=== PATIENT | female | born 1985 | race Hispanic/Latino ===

== ENCOUNTER 2019-04-07 17:19 | Emergency (ER) | payer BC ==
[2019-04-07 17:59] LABS: Urine Blood 2+ (NEG); Urine Glucose NEGATIVE (NEG); Urine Protein NEGATIVE (NEG); Urine Specific Gravity 1.015 (1.005-1.030); Urine pH 5.5 (5.0-7.0)
[2019-04-07] MEDS ORDERED: HYDROCODONE/CHLORPHEN 5 ML/OSYR ONE (18:47)
[2019-04-07] MEDS ORDERED: IPRATROPIUM BROM 0.5MG/2.5ML ONE (18:47)
[2019-04-07] MEDS ORDERED: ALBUTEROL 2.5 MG/3 ML NEB SOL ONE (18:47)
--- NOTE | 2019-04-07 19:11 | RAD REPORT ---
EXAM DESCRIPTION: RAD - Chest Pa And Lat (2 Views) - 04/07/2019 6:55 pm CLINICAL HISTORY: COUGH Chest pain. COMPARISON: No comparisons FINDINGS: The lungs are clear. The heart is normal in size. No displaced fractures. IMPRESSION: No acute or concerning finding suspected.
--- NOTE | 2019-04-07 19:13 | ER ---
Nurse's Notes [facility] Name: Neeraj Singh Age: 33 yrs Sex: Female : 1985 Arrival Date: 04/07/2019 Time: 17:21 Bed 12 Private MD: Venkatesh Duran Diagnosis: Acute bronchitis Presentation: 04/07 17:23 Presenting complaint: Patient states: chest congestion, productive cough x 2 weeks. sv Transition of care: patient was not received from another setting of care. Onset of symptoms was March 24, 2019. Initial Sepsis Screen: Does the patient meet any 2 criteria? No. Patient's initial sepsis screen is negative. Does the patient have a suspected source of infection? No. Patient's initial sepsis screen is negative. Care prior to arrival: None. 17:23 Method Of Arrival: Ambulatory sv 17:23 Acuity: BRYON 3 sv Triage Assessment: 17:23 General: Appears in no apparent distress. uncomfortable, well developed, Behavior is sv calm, cooperative, appropriate for age. Pain: Denies pain. Neuro: Level of Consciousness is awake, alert, obeys commands, Oriented to person, place, time, situation, Gait is steady. Respiratory: Reports cough that is productive, hacking, persistent Airway is patent Respiratory effort is even, unlabored, Respiratory pattern is regular, symmetrical. Derm: Skin is pink, warm \T\ dry. Historical: - Allergies: 17:24 No Known Allergies; sv - PMHx: 17:24 fatty liver; sv - PSHx: 17:24 Cholecystectomy; Tummy tuck; sv Screenin:42 Abuse screen: Denies threats or abuse. Denies injuries from another. Nutritional aj screening: No deficits noted. Tuberculosis screening: No symptoms or risk factors identified. Fall Risk None identified. Assessment: 18:42 General: Appears in no apparent distress. comfortable, Behavior is calm, cooperative, aj appropriate for age. Pain: Denies pain. Neuro: Level of Consciousness is awake, alert, obeys commands, Oriented to person, place, time, situation, Appropriate for age. Respiratory: Reports cough that is Airway is patent Respiratory effort is even, unlabored, Respiratory pattern is regular, symmetrical. Derm: Skin is intact, is healthy with good turgor, Skin is pink, warm \T\ dry. normal. 19:31 Reassessment: Patient appears in no apparent distress at this time. Patient and/or jb4 family updated on plan of care and expected duration. Pain level reassessed. Patient is alert, oriented x 3, equal unlabored respirations, skin warm/dry/pink. Pt left ED ambulatory with steady gate. verbalized understanding of discharge and follow up instructions. No IV access during this visit to ED. Vital Signs: 17:24 BP 127 / 81; Pulse 86; Resp 18; Temp 97.2; Pulse Ox 96% ; Weight 95.25 kg; Height 5 ft. sv (152.40 cm); Pain 0/10; 19:31 BP 119 / 83; Pulse 80; Resp 16; Pulse Ox 98% on R/A; jb4 17:24 Body Mass Index 41.01 (95.25 kg, 152.40 cm) sv ED Course: 17:21 Patient arrived in ED. mr 17:22 Venkatesh Duran MD is Private Physician. mr 17:23 Triage completed. sv 17:24 Arm band placed on. sv 18:25 Malcolm Owen PA is PHCP. cp 18:25 Zeeshan Freedman MD is Attending Physician. cp 18:40 Sumi Gr, JERMAINE is Primary Nurse. aj 18:42 Patient has correct armband on for positive identification. aj 18:54 Chest Pa And Lat (2 Views) XRAY In Process Unspecified. EDMS 19:31 No provider procedures requiring assistance completed. Patient did not have IV access jb4 during this emergency room visit. Administered Medications: 18:43 Drug: Albuterol 2.5 mg Route: Inhalation; aj 19:33 Follow up: Response: No adverse reaction jb4 18:43 Drug: AtroVENT Aerosol 0.5 mg Route: Inhalation; aj 19:33 Follow up: Response: No adverse reaction jb4 18:43 Drug: Tussionex Pennkinetic ER 5 ml Route: PO; aj 19:33 Follow up: Response: No adverse reaction jb4 Outcome: 19:13 Discharge ordered by . cp 19:31 Discharged to home ambulatory. jb4 19:31 Condition: stable 19:31 Discharge instructions given to patient, Instructed on discharge instructions, follow up and referral plans. medication usage, Demonstrated understanding of instructions, follow-up care, medications, Prescriptions given X 4. 19:34 Patient left the ED. jb4 Signatures: Dispatcher [employer] Brenda Amador, RN Sumi Ghotra, JERMAINE DEAN Abisai, Maegan mr Malcolm Owen PA PA cp Bryson, James, RN RN jb4
--- NOTE | 2019-04-07 19:13 | EDPHYS ---
Physician Documentation [facility] Name: Neeraj Singh Age: 33 yrs Sex: Female : 1985 Arrival Date: 04/07/2019 Time: 17:21 Bed 12 Private MD: Venkatesh Duran ED Physician Zeeshan Freedman HPI: 04/07 18:30 This 33 yrs old Female presents to ER via Ambulatory with complaints of Cough. cp 18:30 The patient or guardian reports cough, that is intermittent, with productive sputum. cp Onset: The symptoms/episode began/occurred 2 week(s) ago. 18:30 Severity of symptoms: in the emergency department the symptoms are unchanged, despite cp home interventions. Associated signs and symptoms: Pertinent negatives: chest pain, diarrhea, fever, vomiting. Historical: - Allergies: 17:24 No Known Allergies; sv - PMHx: 17:24 fatty liver; sv - PSHx: 17:24 Cholecystectomy; Tummy tuck; sv ROS: 18:35 Constitutional: Negative for body aches, chills, fever, poor PO intake. cp 18:35 Eyes: Negative for injury, pain, redness, and discharge. cp 18:35 ENT: Positive for rhinorrhea, sore throat, Negative for drainage from ear(s), ear pain, sinus pain. 18:35 Cardiovascular: Negative for chest pain, palpitations. 18:35 Respiratory: Positive for cough, "sounds productive", Negative for wheezing. 18:35 Abdomen/GI: Negative for abdominal pain, nausea, vomiting, and diarrhea. 18:35 Skin: Negative for rash. 18:35 Neuro: Negative for altered mental status, headache, weakness. 18:35 All other systems are negative. Exam: 18:42 Constitutional: The patient appears in no acute distress, alert, awake, cp non-diaphoretic, non-toxic, well developed, well nourished. 18:42 Head/Face: Normocephalic, atraumatic. cp 18:42 Eyes: Periorbital structures: appear normal, Conjunctiva: normal, no exudate, no injection, Sclera: no appreciated abnormality, Lids and lashes: appear normal, bilaterally. 18:42 ENT: External ear(s): are unremarkable, Ear canal(s): are normal, clear, TM's: bulging, is not appreciated, bilaterally, dullness, bilaterally, erythema, is not appreciated, bilaterally, Nose: is normal, Mouth: Lips: moist, Oral mucosa: pink and intact, moist, Posterior pharynx: Airway: no evidence of obstruction, patent, Tonsils: are normal in appearance. 18:42 Neck: ROM/movement: is normal, is supple, without pain, no range of motions limitations, no nuchal rigidity, Lymph nodes: no appreciated lymphadenopathy. 18:42 Chest/axilla: Inspection: normal, Palpation: is normal, no crepitus, no tenderness. 18:42 Cardiovascular: Rate: normal, Rhythm: regular. 18:42 Respiratory: the patient does not display signs of respiratory distress, Respirations: normal, no use of accessory muscles, no retractions, no splinting, no tachypnea, labored breathing, is not present, Breath sounds: are clear throughout, decreased breath sounds, are not appreciated, stridor, is not appreciated, wheezing: is not appreciated. 18:42 Abdomen/GI: Exam negative for discomfort, distension, guarding, Inspection: abdomen appears normal. Vital Signs: 17:24 BP 127 / 81; Pulse 86; Resp 18; Temp 97.2; Pulse Ox 96% ; Weight 95.25 kg; Height 5 ft. sv (152.40 cm); Pain 0/10; 19:31 BP 119 / 83; Pulse 80; Resp 16; Pulse Ox 98% on R/A; jb4 17:24 Body Mass Index 41.01 (95.25 kg, 152.40 cm) sv MDM: 18:25 Patient medically screened. cp 19:12 Data reviewed: vital signs, nurses notes, lab test result(s), radiologic studies, plain cp films. 19:12 Differential Diagnosis: Bronchitis Influenza Sinusitis Otitis Media Viral Syndrome cp Pneumonia. Test interpretation: by ED physician or midlevel provider: plain radiologic studies. Counseling: I had a detailed discussion with the patient and/or guardian regarding: the historical points, exam findings, and any diagnostic results supporting the discharge/admit diagnosis, lab results, radiology results, to return to the emergency department if symptoms worsen or persist or if there are any questions or concerns that arise at home. Response to treatment: the patient's symptoms have markedly improved after treatment. ED course: chest xray negative for acute infiltrates. 04/07 17:37 Order name: Urine Dipstick--Ancillary (enter results); Complete Time: 18:29 bb 04/07 17:37 Order name: Urine --Ancillary (enter results); Complete Time: 18:29 bb 04/07 17:24 Order name: Chest Pa And Lat (2 Views) XRAY; Complete Time: 19:16 sv 04/07 18:29 Order name: Strep; Complete Time: 19:16 cp 04/07 18:29 Order name: Influenza Screen (a \\T\\ B); Complete Time: 19:16 cp 04/07 19:04 Order name: Throat Culture EDMS Administered Medications: 18:43 Drug: Albuterol 2.5 mg Route: Inhalation; 19:33 Follow up: Response: No adverse reaction [facility] 18:43 Drug: AtroVENT Aerosol 0.5 mg Route: Inhalation; 19:33 Follow up: Response: No adverse reaction [facility] 18:43 Drug: Tussionex Pennkinetic ER 5 ml Route: PO; 19:33 Follow up: Response: No adverse reaction [facility] Disposition: 04/07/19 19:13 Discharged to Home. Impression: Acute bronchitis. - Condition is Stable. - Discharge Instructions: Acute Bronchitis, Adult. - Prescriptions for Tessalon Perles 100 mg Oral Capsule - take 2 capsule by ORAL route every 8 hours As needed; 30 capsule. Prednisone 20 mg Oral Tablet - take 2 tablet by ORAL route once daily for 5 days; 10 tablet. Albuterol Sulfate 90 mcg/actuation - inhale 1-2 puff by INHALATION route every 4-6 hours; 1 Inhaler. Albuterol Sulfate 2.5 mg /3 mL (0.083 %) Inhalation Solution for Nebulization - inhale 1 unit by NEBULIZATION route every 8 hours As needed; 1 box. - Medication Reconciliation Form, Thank You Letter, Antibiotic Education, Prescription Opioid Use form. - Follow up: Private Physician; When: 2 - 3 days; Reason: Worsening of condition. - Problem is new. - Symptoms have improved. Addendum: 04/09/2019 07:00 Co-signature as Attending Physician, Zeeshan Freedman MD. r n Signatures: Dispatcher [employer] EDTX Brenda Orta RN RN sv Myers, Amanda, RN RN aj Nieto, Roman, MD MD rn Page, Corey, PA PA cp [place], Marc, RN RN jb4 Corrections: (The following items were deleted from the chart) 04/07 19:34 19:13 04/07/2019 19:13 Discharged to Home. Impression: Acute bronchitis. Condition is jb4 Stable. Forms are Medication Reconciliation Form, Thank You Letter, Antibiotic Education, Prescription Opioid Use. Follow up: Private Physician; When: 2 - 3 days; Reason: Worsening of condition. Problem is new. Symptoms have improved. cp
[2019-04-07 23:12] VITALS: TEMP 97.2
[2019-04-07 23:14] VITALS: BP 119/83; O2SAT 98
== END 2019-04-07 19:34 | disposition home or self-care (01) ==
LOC: ER 17:19
DX: J20.9 Acute bronchitis, unspecified (principal)
CPT/HCPCS: 71046; 81003; 81025; 87070; 87081; 87804; 99284

== ENCOUNTER 2019-06-08 12:53 | Emergency (ER) | payer BC ==
[2019-06-08] MEDS ORDERED: NEOMY/POLY/HC 1% OTIC DROPS ONE (13:45)
--- NOTE | 2019-06-08 13:47 | EDPHYS ---
Physician Documentation [facility] Name: Neeraj Singh Age: 33 yrs Sex: Female : 1985 Arrival Date: 06/08/2019 Time: 12:55 Bed 11 Private MD: Venkatesh Duran ED Physician Zeeshan Freedman HPI: 06/08 13:41 This 33 yrs old Female presents to ER via Ambulatory with complaints of Ear jmm Pain. 13:41 The patient presents with pain. Onset: The symptoms/episode began/occurred gradually, 1 jmm day(s) ago. Modifying factors: The symptoms are alleviated by nothing. This is a 33 year old female that presents to the ED with complaints of right ear pain beginning yesterday. Seen by urgent care and advised to go to the ED because they could not visualize the TM. . 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 - Social history:: Smoking status: Patient/guardian denies using tobacco. - Ebola Screening: : No symptoms or risks identified at this time. ROS: 13:41 Constitutional: Negative for fever, chills, and weight loss. jmm 13:41 Cardiovascular: Negative for chest pain, palpitations, and edema. 13:41 Abdomen/GI: Negative for abdominal pain, nausea, vomiting, diarrhea, and constipation, MS/Extremity: Negative for injury and deformity, Neuro: Negative for headache, weakness, numbness, tingling, and seizure. 13:41 ENT: Positive for ear pain. 13:41 Respiratory: Positive for cough. 13:41 All other systems are negative. Exam: 13:41 Constitutional: This is a well developed, well nourished patient who is awake, alert, jmm and in no acute distress. Head/Face: atraumatic. 13:41 Neck: Trachea midline, Supple Chest/axilla: Normal chest wall appearance and motion. Cardiovascular: Regular rate and rhythm. No edema appreciated Respiratory: Normal respirations, no respiratory distress appreciated Abdomen/GI: Non distended, soft Back: Normal ROM Skin: General appearance color normal MS/ Extremity: Moves all extremities, no obvious deformities appreciated, no edema noted to the lower extremities Neuro: Awake and alert, normal gait 13:41 ENT: Ear canal(s): purulent discharge, in the right canal, swelling, of the right canal, TM's: are normal. Vital Signs: 13:01 BP 120 / 86; Pulse 82; Resp 16 S; Temp 100.7(O); Pulse Ox 100% on R/A; Weight 90.72 kg aa5 (R); Height 5 ft. 0 in. (152.40 cm) (R); Pain 10/10; 13:01 Body Mass Index 39.06 (90.72 kg, 152.40 cm) aa5 MDM: 13:28 Patient medically screened. [facility] 13:41 Data reviewed: vital signs, nurses notes. Counseling: I had a detailed discussion with pelon the patient and/or guardian regarding: the historical points, exam findings, and any diagnostic results supporting the discharge/admit diagnosis, the need for outpatient follow up, to return to the emergency department if symptoms worsen or persist or if there are any questions or concerns that arise at home. ED course: Patient is alert and non toxic in appearance. PE findings concerning for OE. Patient states recently swimming. Able to visualized normal TM. Ear wick inserted. Patient advised to follow up with pcp or ent and otherwise given strict return precautions if symptoms worsen. patient understood and agrees with the plan of care. . Administered Medications: No medications were administered Disposition: 14:45 Co-signature as Attending Physician, Zeeshan Freedman MD. rn Disposition: 06/08/19 13:46 Discharged to Home. Impression: Acute actinic otitis externa. - Condition is Stable. - Discharge Instructions: Otitis Externa. - Prescriptions for Ciprodex 0.3- 0.1 % Otic Drops, Suspension - instill 4 drop by OTIC route every 12 hours for 7 days , for ears ONLY; 1 Container. - Medication Reconciliation Form, Thank You Letter, Antibiotic Education, Prescription Opioid Use form. - Follow up: Venkatesh Duran MD; When: 2 - 3 days; Reason: Recheck today's complaints, Continuance of care, Re-evaluation by your physician. Signatures: Rainer Castellon PA PA jmm Nieto, Roman, MD MD rn Vivian Martines, RN RN aa5 Corrections: (The following items were deleted from the chart) 13:57 13:46 06/08/2019 13:46 Discharged to Home. Impression: Acute actinic otitis externa. aa5 Condition is Stable. Forms are Medication Reconciliation Form, Thank You Letter, Antibiotic Education, Prescription Opioid Use. Follow up: Venkatesh Duran; When: 2 - 3 days; Reason: Recheck today's complaints, Continuance of care, Re-evaluation by your physician. kalina
--- NOTE | 2019-06-08 13:47 | ER ---
Nurse's Notes [facility] Name: Neeraj Singh Age: 33 yrs Sex: Female : 1985 Arrival Date: 06/08/2019 Time: 12:55 Bed 11 Private MD: Venkatesh Duran Diagnosis: Acute actinic otitis externa Presentation: 06/08 13:00 Presenting complaint: Patient states: right ear pain that began yesterday. Pt denies aa5 any other symptoms. 13:00 Transition of care: patient was not received from another setting of care. Onset of aa5 symptoms was May 2019. Risk Assessment: Do you want to hurt yourself or someone else? Patient reports no desire to harm self or others. Initial Sepsis Screen: Does the patient meet any 2 criteria? No. Patient's initial sepsis screen is negative. Does the patient have a suspected source of infection? No. Patient's initial sepsis screen is negative. Care prior to arrival: None. 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 - Social history:: Smoking status: Patient/guardian denies using tobacco. - Ebola Screening: : No symptoms or risks identified at this time. Screenin:07 Abuse screen: Denies threats or abuse. Nutritional screening: No deficits noted. aa5 Tuberculosis screening: No symptoms or risk factors identified. Fall Risk None identified. Assessment: 13:04 General: Appears uncomfortable, Behavior is calm, cooperative. Pain: Complains of pain aa5 in right ear Pain does not radiate. Pain currently is 10 out of 10 on a pain scale. Quality of pain is described as aching, throbbing, Pain began 1 day ago. Is continuous. Neuro: Level of Consciousness is awake, alert, obeys commands, Oriented to person, place, time, situation. Cardiovascular: Patient's skin is warm and dry. Respiratory: Airway is patent Respiratory effort is even, unlabored, Respiratory pattern is regular, symmetrical. GI: No signs and/or symptoms were reported involving the gastrointestinal system. : No signs and/or symptoms were reported regarding the genitourinary system. EENT: Reports pain in right ear. Derm: Skin is pink, warm \T\ dry. Musculoskeletal: Range of motion: intact in all extremities. 13:54 Reassessment: Patient is alert, oriented x 3, equal unlabored respirations, skin aa5 warm/dry/pink. Vital Signs: 13:01 BP 120 / 86; Pulse 82; Resp 16 S; Temp 100.7(O); Pulse Ox 100% on R/A; Weight 90.72 kg aa5 (R); Height 5 ft. 0 in. (152.40 cm) (R); Pain 10/10; 13:01 Body Mass Index 39.06 (90.72 kg, 152.40 cm) aa5 ED Course: 12:55 Patient arrived in ED. as 12:55 Venkatesh Duran MD is Private Physician. as 13:04 Vivian Martines, RN is Primary Nurse. aa5 13:04 Arm band placed on Patient placed in an exam room. aa5 13:04 Patient has correct armband on for positive identification. Call light in reach. aa5 13:05 Triage completed. aa5 13:08 No provider procedures requiring assistance completed. aa5 13:18 [facility] 13:18 eZeshan Freedman MD is Attending Physician. [facility] 13:44 Venkatesh Duran MD is Referral Physician. [facility] 13:54 Patient did not have IV access during this emergency room visit. aa5 Administered Medications: No medications were administered Outcome: 13:46 Discharge ordered by . [facility] 13:54 Discharged to home ambulatory. aa5 13:54 Condition: stable 13:54 Discharge instructions given to patient, Instructed on discharge instructions, follow up and referral plans. medication usage, Demonstrated understanding of instructions, follow-up care, medications, Ear wick was placed by PA prior to d/c home. 13:57 Patient left the ED. aa5 Signatures: Rainer Castellon PA PA jmm Martinez, Amelia as Vivian Martines, RN RN aa5
[2019-06-08 14:25] VITALS: BP 120/86; TEMP 100.7; O2SAT 100
== END 2019-06-08 13:57 | disposition home or self-care (01) ==
LOC: ER 12:53
DX: H60.511 Acute actinic otitis externa, right ear (principal)
CPT/HCPCS: 99281

== ENCOUNTER 2022-01-26 10:01 | Emergency (ER) | payer BC ==
--- OUTSIDE RECORDS SUMMARY | 2022-01-26 10:05 | XMS REPORT | Continuity of Care Document ---
:1985 Author Organization [facility] t Address [address] [place] [address] Care Team Providers Name Role Phone Lab, Fam Pob I Attending Clinician Unavailable Irais SURGERY TEACHER Attending Clinician IRAIS Attending Clinician Unavailable FRANCISCA Attending Clinician Unavailable Francisca SURGERY TEACHER Attending Clinician Payers Payer Name Policy Type Policy Number Effective Date Expiration Date S ource Problems This patient has no known problems. Allergies, Adverse Reactions, Alerts Allergy Allergy Status Severity Reaction(s) Onset Inactive Treating Comm ents Source Name Type Date Date Clinician NO KNOWN Drug Active [facility] Social History Social Habit Start Date Stop Date Quantity Comments Source Sex Assigned At Uni versity [facility] Smoking Status Start Date Stop Date Source Unknown if ever smoked [facility] Medications This patient has no known medications. Procedures This patient has no known procedures. Encounters Start End Encounter Admission Attending Care Care Encounter Source Date/Time Date/Time Type Type Clinicians Facility Department ID 2020-11-28 2020-11-28 Laboratory Lab, [facility] Fam Pob I [facility] 1.2. [id number] Univers 11:49:55 12:09:55 Only [facility] [id number] [facility] [id number] Ricardo as Gerald [phone] Ca dical [address] Office [address] 2020-11-28 2020-11-28 Outpatient R [facility] [id number] Univers 12:00:00 [facility]00[id number] 2020-11-28 2020-11-28 Outpatient R [facility] [id number] Univers 12:00:00 12:00:00 [facility] 2020-06-10 2020-06-10 Outpatient R FRANCISCA [facility] [id number] Univers 08:40:00 08:40:00 DAISHA [facility] 2020-06-10 2020-06-10 Laboratory Lab, Adc Fam Pob I [facility] 1.2. [id number] Univers 08:10:22 08:30:22 Only Daisha Sheikh [id number] [id number] Ricardo as Professio [id number] Ca dical [address] 2020-06-09 2020-06-09 Outpatient R [facility] [id number] Univers 10:15:00 10:15:00 [facility] Results This patient has no known results.
[2022-01-26 10:49] LABS: Urine Blood 1+ (Negative); Urine Glucose Negative (Negative); Urine Protein Negative (Negative); Urine pH 6.5 (5.0-7.0)
[2022-01-26] MEDS ORDERED: MORPHINE 4 MG/ML SYR ONE ×2 (11:09→12:22)
[2022-01-26] MEDS ORDERED: ONDANSETRON 4 MG/2 ML VIAL ONE (11:10)
[2022-01-26] MEDS ORDERED: NA CHLORIDE 0.9% 1,000 ML ONE (11:16)
[2022-01-26 12:26] LABS: Absolute Lymphocytes (CBC) 1.5 K/uL (0.7-4.9); Lymphocytes % 12.2 % (15.3-44.8); MPV 8.7 fL (7.6-11.3); RBC Red Blood Cell Count 4.64 M/uL (3.86-4.86)
[2022-01-26 12:44] LABS: Albumin 3.5 g/dL (3.4-5.0); Bilirubin Direct 0.2 mg/dL (0-0.2); Bilirubin Total 0.9 mg/dL (0.2-1.0); Potassium 3.9 mmol/L (3.5-5.1); Protein, Total 7.7 g/dL (6.4-8.2)
--- NOTE | 2022-01-26 13:19 | RAD REPORT ---
EXAM DESCRIPTION: CT - Abdomen Pelvis W Contrast - 01/26/2022 1:00 pm CLINICAL HISTORY: FLANK PAINleft-side COMPARISON: Abdomen Exam Complete dated 02/28/2019 TECHNIQUE: Biphasic, helical CT imaging of the abdomen and pelvis was performed following 100 ml non -ionic IV contrast. All CT scans are performed using dose optimization technique as appropriate and may include automated exposure control or mA/KV adjustment according to patient size. FINDINGS: No suspicious findings in the lung bases. Liver shows a very diffuse fatty infiltration pattern with a 13 mm area of rounded focal enhancement in the anterolateral subcapsular right lobe segment VIII. This could be an area of spared parenchyma. A small hemangioma is possible. This is not regarded as a significant finding. No portal vein abnorm ality. Spleen and pancreas show no suspicious findings. Cholecystectomy clips are present. No biliary tree d ilatation. Patient has numerous 3-10 mm sized bilateral calyx calculi. Moderate severity left-sided hydronephros is present secondary to a 12 x 9 mm stone in the mid left ureter. This causes significant delay in fu nction of the left kidney relative to the right. Right renal function has a normal appearance with no right-sided hydronephrosis or obstructing right-sided calculus. No pyelonephritis or acute parenchym al process. No bladder abnormalities. No adrenal abnormalities. Uterus and ovaries show no suspicious findings. No dilated bowel loops or bowel wall thickening. Appendix is normal. No free air, free fluid or infla mmatory stranding. A 4 centimeter fat only periumbilical hernia is present with a 1.5 centimeter nec k. No congested or edematous changes of the herniated fat. No bowel involvement. No other hernia defe cts seen. No mass or bulky lymphadenopathy. No suspicious bony findings. IMPRESSION: Moderate severity left-sided hydronephrosis down to the mid ureter level where there is a 12 x 9 mm obstructing calculus. Patient has numerous bilateral nonobstructing calyx calculi. Diffuse fatty infiltration of the liver. A 13 millimeter rounded focus of enhancement in the lateral right lobe may be spared parenchyma or small hemangioma. This is not regarded as significant.
[2022-01-26] MEDS ORDERED: KETOROLAC 30 MG/ML INJ ONE (15:25)
[2022-01-26] MEDS ORDERED: HYDROMORPHONE HCL 1 MG/ML INJ ONE (17:06)
[2022-01-26] MEDS ORDERED: TAMSULOSIN 0.4 MG SR CAP ONE (17:22)
--- NOTE | 2022-01-26 17:32 | ER ---
Nurse's Notes [facility] Name: Neeraj Singh Age: 36 yrs Sex: Female : 1985 Arrival Date: 01/26/2022 Time: 10:05 Bed 12 Private MD: Venkatesh Duran Diagnosis: Calculus of ureter Presentation: 01/26 10:10 Chief complaint: Patient states: LUQ/L flank pain since Sunday, got worse today. + N/V ll1 when the pain is severe. No fever or dysuria. 10:17 Coronavirus screen: Vaccine status: Patient reports receiving the 1st dose of the Covid ll1 vaccine. Client denies travel out of the [place] in the last 14 days. At this time, the client does not indicate any symptoms associated with coronavirus-19. Ebola Screen: Patient denies travel to an Ebola-affected area in the 21 days before illness onset. Initial Sepsis Screen: Does the patient meet any 2 criteria? HR > 90 bpm. No. Patient's initial sepsis screen is negative. Does the patient have a suspected source of infection? Yes: Acute abdominal pain. Risk Assessment: Do you want to hurt yourself or someone else? Patient reports no desire to harm self or others. Onset of symptoms was January 20, 2022. 10:17 Method Of Arrival: Ambulatory ll1 10:17 Acuity: BRYON 3 ll1 Triage Assessment: 10:10 General: Appears uncomfortable, Behavior is calm, cooperative, appropriate for age. ll1 Pain: Complains of pain in L flank Quality of pain is described as aching, Pain began 6 days ago. Neuro: No deficits noted. Cardiovascular: No deficits noted. Respiratory: No deficits noted. GI: Reports upper abdominal pain, nausea, vomiting. : No deficits noted. Musculoskeletal: Circulation, motion, and sensation intact. Capillary refill < 3 seconds, Reports pain in L flank. 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 - Social history:: Smoking status: Patient denies any tobacco usage or history of. Screenin:41 Abuse screen: Denies threats or abuse. Denies injuries from another. Nutritional jg9 screening: No deficits noted. Tuberculosis screening: No symptoms or risk factors identified. Fall Risk None identified. Assessment: 11:00 Reassessment: No changes from previously documented assessment. pain is 8/10. jg9 11:22 Reassessment: Patient states symptoms have improved. jg9 12:21 Reassessment: Patient reports that her pain level is beginning to rise again-Mid level jg9 notified. 16:15 Reassessment: Patient states feeling better. Patient reports relief after receiving jg9 Toradol 30 mg IV. Neuro: No deficits noted. Level of Consciousness is awake, alert, obeys commands, Oriented to person, place, time, situation. 17:22 Reassessment: Patient states feeling better. Patient states symptoms have improved. jg9 Neuro: Level of Consciousness is awake, alert, obeys commands, Oriented to person, place, time, situation. Vital Signs: 10:17 BP 120 / 55; Pulse 93; Resp 18; Temp 98.8; Pulse Ox 98% ; Weight 104.33 kg; Height 5 ll1 ft. 0 in. (152.40 cm); Pain 8/10; 11:00 BP 121 / 67; Pulse 84; Resp 14 S; Pulse Ox 96% ; Pain 8/10; jg9 11:22 Pain 1/10; jg9 11:30 BP 114 / 66; Pulse 66; Resp 12 S; Pulse Ox 99% on R/A; jg9 12:30 BP 134 / 71; Pulse 93; Resp 12 S; Pulse Ox 98% on R/A; Pain 4/10; jg9 13:30 BP 136 / 74; Pulse 94; Resp 18 S; Pulse Ox 98% on R/A; jg9 14:00 BP 118 / 78; Pulse 82; Resp 17; Pulse Ox 96% on R/A; Pain 8/10; jg9 15:00 BP 116 / 68; Pulse 101; Resp 16 S; Pulse Ox 97% ; jg9 16:15 BP 120 / 63; Pulse 104; Resp 12 S; Pulse Ox 93% on R/A; Pain 6/10; jg9 17:28 BP 128 / 69; Pulse 95; Resp 10 S; Pulse Ox 95% on R/A; jg9 10:17 Body Mass Index 44.92 (104.33 kg, 152.40 cm) 1 ED Course: 10:05 Patient arrived in ED. mr 10:05 Venkatesh Duran MD is Private Physician. mr 10:12 Arm band placed on Patient placed in an exam room, on a stretcher. ll1 10:13 [facility]. m 10:13 Malcolm Jones MD is Attending Physician. m 10:19 Triage completed. ll1 10:41 Inserted saline lock: 20 gauge in right antecubital area, using aseptic technique. jg9 Blood collected. 10:58 Suyapa Walters, JERMAINE is Primary Nurse. jg9 13:00 CT Abd/Pelvis - IV Contrast Only In Process Unspecified. EDMS 16:16 No apparent distress. Resting quietly. jg9 17:22 No apparent distress. Resting quietly. jg9 17:23 Patient has correct armband on for positive identification. Bed in low position. Call jg9 light in reach. Door closed. Noise minimized. Lights dimmed. 17:32 David Ferguson MD is Referral Physician. m 18:27 No provider procedures requiring assistance completed. jg9 18:27 IV discontinued. jg9 Administered Medications: 11:10 Drug: Zofran (Ondansetron) 4 mg Route: IVP; Site: right antecubital; jg9 11:22 Follow up: Response: No adverse reaction jg9 11:12 Drug: morphine 4 mg {Note: RASS-0.} Route: IVP; Site: right antecubital; jg9 11:23 Follow up: Response: No adverse reaction; Marked relief of symptoms; Pain is decreased jg9 11:18 Drug: NS 0.9% 1000 ml Route: IV; Rate: 1 bolus; Site: right antecubital; jg9 17:17 Follow up: IV Status: Completed infusion; IV Intake: 1000ml jg9 12:21 Drug: morphine 4 mg Route: IVP; Site: right antecubital; jg9 13:33 Follow up: Response: Pain is decreased jg9 15:23 Drug: Ketorolac 30 mg Route: IVP; Site: right antecubital; jg9 16:15 Follow up: Response: No adverse reaction; Marked relief of symptoms; Pain is decreased jg9 17:16 Drug: Dilaudid (HYDROmorphone) 1 mg Route: IVP; Infused Over: 2 mins; Site: right jg9 antecubital; 17:21 Follow up: Response: No adverse reaction; Marked relief of symptoms; Pain is decreased; jg9 RASS: Drowsy (-1) 17:22 Drug: Flomax (tamsulosin) 0.4 mg Route: PO; jg9 18:28 Follow up: Response: No adverse reaction jg9 Intake: 17:17 IV: 1000ml; Total: 1000ml. jg9 Outcome: 17:32 Discharge ordered by . pelon 18:27 Discharged to home via wheelchair. jg9 18:27 Condition: stable 18:27 Discharge instructions given to patient, Instructed on discharge instructions, follow up and referral plans. Demonstrated understanding of instructions, follow-up care, medications, Prescriptions given X 3. 18:28 Patient left the ED. ss Signatures: Dispatcher [employer] EDMS Rainer Castellon PA PA jmm Rivera, Mary mr Smirch, Shelby, RN JERMAINE ss Rohan Ward RN RN ll1 Suyapa Walters RN RN jg9
--- NOTE | 2022-01-26 17:32 | EDPHYS ---
Physician Documentation [facility] Name: Neeraj Singh Age: 36 yrs Sex: Female : 1985 Arrival Date: 01/26/2022 Time: 10:05 Bed 12 Private MD: Venkatesh Duran ED Physician Malcolm Jones HPI: 01/26 10:16 This 36 yrs old Female presents to ER via Ambulatory with complaints of Flank jmm Pain, Back Pain. 10:16 The patient complains of pain in the left flank. The pain radiates to the abdomen. jmm Onset: The symptoms/episode began/occurred gradually, 2 day(s) ago. Modifying factors: The symptoms are alleviated by nothing. the symptoms are aggravated by nothing. Associated signs and symptoms: Pertinent negatives: dysuria, fever. The patient has not experienced similar symptoms in the past. 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 - Social history:: Smoking status: Patient denies any tobacco usage or history of. ROS: 10:16 Constitutional: Negative for fever, chills, and weight loss, Cardiovascular: Negative jmm for chest pain, palpitations, and edema, Respiratory: Negative for shortness of breath, cough, wheezing, and pleuritic chest pain, Abdomen/GI: Negative for abdominal pain, nausea, vomiting, diarrhea, and constipation. 10:16 Back: Positive for flank pain. 10:16 All other systems are negative. Exam: 10:16 Constitutional: This is a well developed, well nourished patient who is awake, alert, jmm and in no acute distress. Head/Face: atraumatic. Eyes: EOMI, no conjunctival erythema appreciated ENT: Moist Mucus Membranes Neck: Trachea midline, Supple Chest/axilla: Normal chest wall appearance and motion. Cardiovascular: Regular rate and rhythm. No edema appreciated Respiratory: Normal respirations, no respiratory distress appreciated Abdomen/GI: Non distended, soft 10:16 Skin: General appearance color normal MS/ Extremity: Moves all extremities, no obvious deformities appreciated, no edema noted to the lower extremities Neuro: Awake and alert Psych: Behavior is normal, Mood is normal, Patient is cooperative and pleasant 10:16 Back: CVA tenderness, that is moderate, is noted on the left. Vital Signs: 10:17 BP 120 / 55; Pulse 93; Resp 18; Temp 98.8; Pulse Ox 98% ; Weight 104.33 kg; Height 5 ll1 ft. 0 in. (152.40 cm); Pain 8/10; 11:00 BP 121 / 67; Pulse 84; Resp 14 S; Pulse Ox 96% ; Pain 8/10; jg9 11:22 Pain 1/10; jg9 11:30 BP 114 / 66; Pulse 66; Resp 12 S; Pulse Ox 99% on R/A; jg9 12:30 BP 134 / 71; Pulse 93; Resp 12 S; Pulse Ox 98% on R/A; Pain 4/10; jg9 13:30 BP 136 / 74; Pulse 94; Resp 18 S; Pulse Ox 98% on R/A; jg9 14:00 BP 118 / 78; Pulse 82; Resp 17; Pulse Ox 96% on R/A; Pain 8/10; jg9 15:00 BP 116 / 68; Pulse 101; Resp 16 S; Pulse Ox 97% ; jg9 16:15 BP 120 / 63; Pulse 104; Resp 12 S; Pulse Ox 93% on R/A; Pain 6/10; jg9 17:28 BP 128 / 69; Pulse 95; Resp 10 S; Pulse Ox 95% on R/A; jg9 10:17 Body Mass Index 44.92 (104.33 kg, 152.40 cm) ll1 MDM: 10:17 Patient medically screened. [facility] 17:02 Data reviewed: vital signs, nurses notes. [facility] 17:29 Counseling: I had a detailed discussion with the patient and/or guardian regarding: the [facility] historical points, exam findings, and any diagnostic results supporting the discharge/admit diagnosis, lab results, radiology results, the need for outpatient follow up, the need to transfer to another facility, to return to the emergency department if symptoms worsen or persist or if there are any questions or concerns that arise at home. ED course: I discussed the patient with Dr. Ferguson whom will follow up with the patient in clinic tomorrow. I discussed this with the patient whom prefers outpatient follow up with Dr. Marty galicia. . 01/26 10:16 Order name: Basic Metabolic Panel; Complete Time: 13:08 [facility] 01/26 10:16 Order name: CBC with Diff; Complete Time: 13:08 [facility] 01/26 10:16 Order name: Hepatic Function; Complete Time: 13:08 [facility] 01/26 10:16 Order name: Lipase; Complete Time: 13:08 [facility] 01/26 10:49 Order name: Urine Dipstick-Ancillary; Complete Time: 10:50 [facility] 01/26 10:55 Order name: Urine --Ancillary (enter results); Complete Time: 11:05 01/26 11:06 Order name: CT Abd/Pelvis - IV Contrast Only; Complete Time: 13:40 [facility] 01/26 10:16 Order name: IV Saline Lock; Complete Time: 10:42 [facility] 01/26 10:16 Order name: Labs collected and sent; Complete Time: 10:42 [facility] 01/26 10:16 Order name: Urine Dipstick-Ancillary (obtain specimen); Complete Time: 10:58 [facility] 01/26 12:16 Order name: Labs - recollect needed; Complete Time: 12:21 ss Administered Medications: 11:10 Drug: Zofran (Ondansetron) 4 mg Route: IVP; Site: right antecubital; jg9 11:22 Follow up: Response: No adverse reaction jg9 11:12 Drug: morphine 4 mg {Note: RASS-0.} Route: IVP; Site: right antecubital; jg9 11:23 Follow up: Response: No adverse reaction; Marked relief of symptoms; Pain is decreased jg9 11:18 Drug: NS 0.9% 1000 ml Route: IV; Rate: 1 bolus; Site: right antecubital; jg9 17:17 Follow up: IV Status: Completed infusion; IV Intake: 1000ml jg9 12:21 Drug: morphine 4 mg Route: IVP; Site: right antecubital; jg9 13:33 Follow up: Response: Pain is decreased jg9 15:23 Drug: Ketorolac 30 mg Route: IVP; Site: right antecubital; jg9 16:15 Follow up: Response: No adverse reaction; Marked relief of symptoms; Pain is decreased jg9 17:16 Drug: Dilaudid (HYDROmorphone) 1 mg Route: IVP; Infused Over: 2 mins; Site: right jg9 antecubital; 17:21 Follow up: Response: No adverse reaction; Marked relief of symptoms; Pain is decreased; jg9 RASS: Drowsy (-1) 17:22 Drug: Flomax (tamsulosin) 0.4 mg Route: PO; jg9 18:28 Follow up: Response: No adverse reaction jg9 Disposition Summary: 01/26/22 17:32 Discharge Ordered Location: Home [facility] Condition: Stable [facility] Diagnosis - Calculus of ureter [facility] Followup: [facility] - With: David Ferguson MD - When: Tomorrow - Reason: Recheck today's complaints, Continuance of care, Re-evaluation by your physician Discharge Instructions: - Discharge Summary Sheet [facility] - Kidney Stones [facility] Forms: - Medication Reconciliation Form [facility] - Thank You Letter [facility] - Antibiotic Education [facility] - Prescription Opioid Use [facility] Prescriptions: - Tylenol-Codeine #3 300 mg-30 mg Oral - take 1 tablet by ORAL route every 4-6 hours; 30 tablet; Refills: 0, Product [facility] Selection Permitted - tamsulosin 0.4 mg Oral capsule - take 1 capsule by ORAL route once daily 1/2 hour following the same meal each [facility] day; 30 capsule; Refills: 0, Product Selection Permitted - ondansetron 4 mg Oral tablet,disintegrating - take 1 tablet by ORAL route every 4-6 hours; 30 tablet; Refills: 0, Product [facility] Selection Permitted Signatures: Dispatcher [employer] Malcolm Connors MD MD cha Mickail, Joel, PA PA [facility] Araceli Tejeda RN RN ss Rohan Ward RN RN ll1 Suyapa Walters RN RN jg9
[2022-01-26 20:12] VITALS: TEMP 98.8
[2022-01-26 20:23] VITALS: BP 128/69; O2SAT 95
== END 2022-01-26 18:28 | disposition home or self-care (01) ==
LOC: ER 10:01
DX: N20.1 Calculus of ureter (principal)
CPT/HCPCS: 96361; 85025; 80048; 36415; 81025; 80076; 81003; 83690; 74177; 96375; 96374; 99284; Q9967; J1170; J7030; J2405

== ENCOUNTER 2022-01-27 13:45 | Inpatient (IN) | payer BC ==
[2022-01-27] MEDS ORDERED: ONDANSETRON 4 MG/2 ML VIAL ONE (14:06)
[2022-01-27] MEDS ORDERED: Ringers Lactate 1,000 ML IV ONE (14:11)
[2022-01-27] MEDS ORDERED: CEFAZOLIN/SWI 2gm 2 GM/20 ML SYR IV SCH (14:15)
[2022-01-27] MEDS ORDERED: PROMETHAZINE INJ 25 MG/ML AMP ONE (17:05)
[2022-01-27] MEDS ORDERED: propofoL 200 MG/20 ML VIAL IV ONE (18:18)
[2022-01-27] MEDS ORDERED: FENTANYL CITR 100 MCG/2 ML ONE (18:18)
[2022-01-27] MEDS ORDERED: MIDAZOLAM HCL 2 MG/2 ML INJ ONE (18:18)
[2022-01-27] MEDS ORDERED: ONDANSETRON 4 MG/2 ML VIAL IV PRN (18:49)
[2022-01-27] MEDS: NA CHLORIDE 0.9% 1,000 ML IV SCH ×2 (19:00→20:12)
[2022-01-27] MEDS ORDERED: CEFTRIAXONE 1,000 MG in NA CHLORIDE 0.9% 50 ML IVPB ONE (19:00)
--- OUTSIDE RECORDS SUMMARY | 2022-01-27 19:05 | XMS REPORT | Continuity of Care Document ---
:1985 Author Organization [facility] t Address [address] [place] [address] Care Team Providers Name Role Phone Roger Attending Clinician Unavailable Lab, Fam Pob I Attending Clinician Unavailable Irais AIRPLANE CABIN ATTENDANT Attending Clinician IRAIS Attending Clinician Unavailable FRANCISCA Attending Clinician Unavailable Francisca GALVEZ Attending Clinician Payers Payer Name Policy Type Policy Number Effective Date Expiration Date S ource Problems This patient has no known problems. Allergies, Adverse Reactions, Alerts Allergy Allergy Status Severity Reaction(s) Onset Inactive Treating Comm ents Source Name Type Date Date Clinician NO KNOWN Drug Active Univers ALLERGIE Class ity of S [facility] Social History Social Habit Start Date Stop Date Quantity Comments Source Sex Assigned At Uni versity [facility] Smoking Status Start Date Stop Date Source Unknown if [facility] Medications This patient has no known medications. Procedures This patient has no known procedures. Encounters Start End Encounter Admission Attending Care Care Encounter Source Date/Time Date/Time Type Type Clinicians Facility Department ID 2022-01-27 Outpatient CARLOS Duran [facility] [id number] 07:57:01 Venkatesh Lup[facility] 2020-11-28 2020-11-28 Laboratory Lab, Adc Fam Pob I [facility] 1.2. [id number] Univers 11:49:55 12:09:55 Only [place] Amy [facility] [id number] [facility] [id number] Ricardo as Professio [phone] [place] [address] [address] 2020-11-28 2020-11-28 Outpatient R [facility] [id number] Univers 12:00:00 12:00:00 [id number] [facility] 2020-11-28 2020-11-28 Outpatient R IRAIS [facility] [id number] Univers 12:00:00 12:00:00 AMY [facility] 2020-06-10 2020-06-10 Outpatient R FRANCISCA [facility] [id number] Univers 08:40:00 08:40:00 DAISHA [facility] 2020-06-10 2020-06-10 Laboratory Lab, Adc Fam Pob I [facility] 1.2. [id number] Univers 08:10:22 08:30:22 Only Daisha Sheikh [facility] [id number] [facility] [id number] Ricardo as Gerald [phone] [address] 2020-06-09 2020-06-09 Outpatient R [facility] [id number] Univers 10:15:00 10:15:00 [facility] Results This patient has no known results.
--- NOTE | 2022-01-27 20:06 | RAD REPORT ---
EXAM DESCRIPTION: RAD - Urethrocystogrphy Retrograde - 01/27/2022 7:07 pm CLINICAL HISTORY: ICD N 20.0 FINDINGS: 8 fluoroscopic spot images obtained. Fluoroscopy time 0.2 minutes Left ureter was cannulated and contrast administered. Subsequently an ureteral stent was placed. Exam ination was performed by Dr Ferguson
[2022-01-27] MEDS: MORPHINE 2 MG/ML SYR IV PRN (20:12)
[2022-01-27] MEDS ORDERED: MORPHINE 4 MG/ML SYR ONE (20:13)
--- NOTE | 2022-01-27 21:20 | P.HP ---
Certification for Inpatient Patient admitted to: Observation With expected LOS: <2 Midnights Patient will require the following post-hospital care: None Practitioner: I am a practitioner with admitting privileges, knowledge of patient current condition, hospital course, and medical plan of care. Services: Services provided to patient in accordance with Admission requirements found in Title 42 Section 412.3 of the Code of Federal Regulations Patient History Date of Service: 01/27/22 Primary Care Provider: Dr. Duran Reason for admission: Ureteral calculus History of Present Illness: 36-year-old female with no significant past medical history aside from kidney stones was seen in the emergency department yesterday and diagnosed with a 12 x 9 mm obstructing left ureteral calculus. Urology was consulted at that time recommended close follow-up in their clinic. Throughout the day today patient had increasing pain and developed fever was seen by urology in the clinic who referred her over to the hospital to have a ureteral stent placed. Patient was brought to the operating room and a left ureteral stent was placed by urology who requested patient be admitted to the hospitalist service for further evaluation and management. Patient was given Rocephin, IV fluids in the OR. Patient with mild leukocytosis, negative for UTI this time. Patient was admitted to the [facility] floor. Allergies No Known Allergies Allergy (Verified 01/27/22 13:27) Home Medications: Codeine/APAP [Tylenol #3*] 1 tab PO Q4HR 01/27/22 Tamsulosin HCl 1 tab PO DAILY 01/27/22 - Past Medical/Surgical History Diabetic: No -: kidney stones as teenager.ADGH. -: wisdom teeth extracted x 2. Dr. Rasheed 2010 -: Cholecystectomy -: Carmencita roy Psychosocial/ Personal History: Patient lives at home with her - Family History Family History: Reviewed- Non-Contributory - Social History Smoking Status: Never smoker Alcohol use: No CD- Drugs: No Caffeine use: No Place of Residence: Home Review of Systems 10-point ROS is otherwise unremarkable Gastrointestinal: Nausea, Abdominal Pain Neurological: Other (Headache) Physical Examination - Vital Signs Temperature: 98.5 F Blood Pressure: 135/63 Pulse: 104 Respirations: 16 Pulse Ox (%): 99 - Physical Exam General: Alert, In no apparent distress, Oriented x3 HEENT: Atraumatic, PERRLA, Mucous membr. moist/pink, EOMI, Sclerae nonicteric Neck: Supple, 2+ carotid pulse no bruit, No LAD, Without JVD or thyroid abnormality Respiratory: Clear to auscultation bilaterally, Normal air movement Cardiovascular: Regular rate/rhythm, Normal S1 S2 Gastrointestinal: Normal bowel sounds, No tenderness Musculoskeletal: No tenderness Integumentary: No rashes Neurological: Normal gait, Normal speech, Normal strength at 5/5 x4 extr, Normal tone, Normal affect Lymphatics: No axilla or inguinal lymphadenopathy Assessment and Plan - Plan Assessment: 12 mm left ureteral calculus with obstruction, fever S/P ureteral stent placement Plan: 12 mm left ureteral calculus with obstruction, fever S/P ureteral stent placement: Continue IV fluids, antibiotics, as needed pain medications and antiemetics. Repeat labs in the morning. Urology following. Patient doing well at this time postoperatively complaining of mild headache resting comfortably in the bed. We will continue to monitor throughout the evening. DVT PPX: SCD Code status: Full Discharge Plan: Home Plan to discharge in: 24 Hours - Advance Directives Does patient have a Living Will: No Does patient have a Durable POA for Healthcare: No - Code Status/Comfort Care Code Status Assessed: Yes (Full code) Critical Care: No Time Spent Managing Pts Care (In Minutes): 55
[2022-01-27] MEDS ORDERED: KETOROLAC 30 MG/ML INJ IV ONE (21:24)
[2022-01-27] MEDS ORDERED: DIPHENHYDRAMINE 50 MG/ML VIAL IV ONE (21:24)
[2022-01-27] MEDS: METOCLOPRAMIDE 10 MG/2mL INJ IV SCH (22:07)
[2022-01-27 22:30] VITALS: BMI 43.0
[2022-01-28] MEDS ORDERED: MORPHINE 4 MG/ML SYR ONE (04:12)
[2022-01-28] MEDS: MORPHINE 2 MG/ML SYR IV PRN (04:13)
[2022-01-28] MEDS: NA CHLORIDE 0.9% 1,000 ML IV SCH ×2 (04:15→15:03)
--- NOTE | 2022-01-28 05:18 | OP ---
Surgeon: KLAUDIA OCAMPO Preoperative Diagnoses: 1.Left obstructive ureterolithiasis. 2.Suspected pyelonephritic sepsis. Postoperative Diagnoses: 1.Left obstructive ureterolithiasis. 2.Suspected pyelonephritic sepsis. Principal Procedure: 1.Cystoscopy. 2.Left retrograde pyelography. 3.Left ureteral stent placement. Indication For Procedure: Ms. Singh is a 36-year-old woman who presented to the [facility] this morning having been seen in the emergency department last night with severe left flank pain associat ed with the presence of a 12 mm midureteral calculus. She was afebrile at that time with normal immanuel l function, but subsequently, I saw her in the office today where her fever curve was elevating with a T-max in the office of 100.1. As a result, because she was significantly ill appearing and had sig nificant anorexia, I recommended urgent operative management with stent placement and I counseled her on the potential need for a percutaneous nephrostomy tube to be placed. Procedure In Detail: The patient was consented in the preoperative holding area before being transfe rred to the operative suite where general anesthesia was induced. She was given ceftriaxone 1 g IV a ntimicrobial prophylaxis and Pneumoboots were provided for DVT prophylaxis. She was placed in the li thotomy position, padded and secured to the table appropriately. Her genitalia were prepped using Hi biclens and draped in standard fashion. The case was begun using a 22-[place] rigid cystoscope to tra verse the urethra and into the bladder with ease. The bladder was surveyed, and no obvious mucosal l esions, foreign bodies or stones were noted. In the left josé-trigone, there was a duplicated left u reteral orifice with 1 in the orthotopic location that was the actual ureteral attachment and an sajan tional orifice that was more medial, which was blind-ending. I additionally cannulated the medial orifice within the left josé-trigone and injected contrast perfo rming a retrograde pyelogram on that side. Left medial orifice retrograde pyelography: Using a 70:30 mixture of Omnipaque and saline, contrast mixture was injected and did emanate approximately 2 or 3 cm up a ureteral orifice channel within the intramural portion of the bladder that was blind-ending. As a result, I removed the ureteral access catheter and then cannulated the more orthotopic and lateral ureteral orifice using the 5-[place] ure teral access catheter. Left afognak ureteral orifice retrograde pyelogram: Using a similar 70:30 mixture of Omnipaque and sa line, the contrast mixture was injected via the lumen of the 5-[place] ureteral access catheter and di d propagate up a normal ureter until a point of obstruction was encountered in the mid proximal urete r. Initially, contrast would not progress beyond this point of obstruction, so I advanced the cathet er into the mid proximal ureter just distal to the stone and again injected contrast. With a little bit more forceful of a contrast bolus administered this time, I was able to get a wisp of contrast be yond the stone and delineate the putative renal pelvis. There was evident hydronephrosis. As a resu lt, without attempts to further fill the renal pelvis with contrast, I then passed a Sensor wire via the 5-[place] ureteral access catheter and it did coil within the upper pole calyx as observed fluoros copically. I then removed the 5-[place] ureteral access catheter and passed over the Sensor wire, a 6 -[place] x 26 cm double-J ureteral stent. A coil was observed fluoroscopically in the upper pole and 1 cystoscopically was formed in the bladder. Her bladder was then decompressed of fluid and urine, a nd she was taken out of the lithotomy position. She was awakened from general anesthesia, transferre d to a stretcher, and then transferred to the recovery room in good condition. Complications: None. Discharge Disposition: She will be admitted and managed for suspected sepsis overnight on the hospit alist service and discharge when appropriate. Urine cultures have been sent, and we will anticipate followup for definitive management of her nephroureterolithiasis on the left in the coming weeks once the infection is completely cleared. WR/MODL Voice ID: [id number] Report ID: [id number]
--- NOTE | 2022-01-28 06:05 | P.PN ---
Date of Service: 01/28/22 Subjective: Overall feeling better, febrile last night Reports severe migraine Given Toradol, Reglan post Benadryl, and morphine. States neither of these helped reports hematuria ROS: 10 point ROS as noted above, otherwise negative Physical exam GEN: Alert, oriented, uncomfortable HEENT: Normal conjunctiva, sclera anicteric CV: Regular rate and rhythm, no edema Pulm: Nonlabored respirations on 2L NC ABD: Soft, nontender, nondistended Integumentary: No rashes Neuro: Normal speech, normal affect, 5/5 str in all extremities Problem List 12 mm left ureteral calculus with obstruction with hematuria, fever S/P ureteral stent placement: Headache Febrile last night Continue IV Rocephin Urine culture pending Mild leukocytosis, infectious versus reactive No abdominal tenderness or pain Diet as tolerated Add Tylenol Try triptan if migraine persists monitor hematuria Code status: Full Dispo: home, tomorrow, pending cultures, improvement, afebrile Time Spent Managing Pts Care (In Minutes): 35
[2022-01-28 06:51] LABS: Absolute Lymphocytes (CBC) 1.4 K/uL (0.7-4.9); Hematocrit 37.1 % (36.0-45.0); Lymphocytes % 11.9 % (15.3-44.8); MPV 9.4 fL (7.6-11.3); RBC Red Blood Cell Count 4.38 M/uL (3.86-4.86)
[2022-01-28 07:13] LABS: Bilirubin Total 0.8 mg/dL (0.2-1.0); Potassium 3.3 mmol/L (3.5-5.1); Protein, Total 7.6 g/dL (6.4-8.2)
[2022-01-28] MEDS ORDERED: POTASSIUM CL SA 10 MEQ TAB PO ONE (07:45)
[2022-01-28] MEDS ORDERED: ACETAMINOPHEN 500 MG TAB PO PRN (07:46)
[2022-01-28] MEDS: CEFTRIAXONE 1,000 MG in NA CHLORIDE 0.9% 50 ML IVPB SCH (08:06)
[2022-01-28] MEDS ORDERED: MORPHINE 4 MG/ML SYR IV PRN (10:16)
[2022-01-28] MEDS ORDERED: INFLUENZA VACCINE (for 6+ mo) 0.5 ML DOSE IMVAC ONE (12:00)
[2022-01-28] MEDS ORDERED: SUMATRIPTAN SUCCI 50 MG TAB PO ONE (14:00)
[2022-01-28] MEDS: METOCLOPRAMIDE 10 MG/2mL INJ IV SCH (22:00)
[2022-01-29] MEDS ORDERED: SUMATRIPTAN SUCCI 50 MG TAB PO ONE (01:18)
[2022-01-29] MEDS: NA CHLORIDE 0.9% 1,000 ML IV SCH (01:28)
[2022-01-29 06:24] LABS: Absolute Lymphocytes (CBC) 2.6 K/uL (0.7-4.9); Hematocrit 37.5 % (36.0-45.0); Lymphocytes % 27.8 % (15.3-44.8); MPV 9.2 fL (7.6-11.3); RBC Red Blood Cell Count 4.44 M/uL (3.86-4.86)
[2022-01-29 06:39] LABS: Bilirubin Total 0.5 mg/dL (0.2-1.0); Protein, Total 7.7 g/dL (6.4-8.2)
[2022-01-29 09:44] VITALS: O2SAT 95
[2022-01-29] MEDS ORDERED: POTASSIUM 25 MEQ EFFERV TAB PO ONE (09:46)
[2022-01-29] MEDS: CEFTRIAXONE 1,000 MG in NA CHLORIDE 0.9% 50 ML IVPB SCH (09:49)
[2022-01-29 12:54] VITALS: BP 104/69; TEMP 97.2
--- NOTE | 2022-01-29 14:35 | P.DS ---
Admission Date: 01/27/22 Discharge Date: 01/29/22 Primary Care Provider: Dr. Duran Disposition: ROUTINE DISCHARGE Discharge Condition: GOOD Reason for Admission: Ureteral calculus Consultations: Urology - Dr. Ferguson Brief History of Present Illness: 36yo F, PMH: kidney stones Patient with 12 x 9 mm obstructing left ureteral calculus who is now s/p left ureteral stent placement by Dr. Ferguson. Admitted following procedure due to fever and concern for sepsis. Patient was given rocephine and IV fluids in the OR. Hospital Course: Patient was found to have an obstructing stone and fever. Underwent ureteral stent placement without complications. Initial urine culture grew mixed sofia. Patient was empirically treated with IV Rocephin. She remained afebrile and felt much better. She did report having a severe migraine which resolved after one dose of sumatriptan. Patient was discharged home with 7 more days of antibiotic. Follow up with Urology in 1-2 weeks. Vital Signs/Physical Exam: Temp Pulse Resp BP Pulse Ox 97.2 F 84 18 104/69 97 01/29/22 12:00 01/29/22 12:00 01/29/22 12:00 01/29/22 12:00 01/29/22 12:00 General: Alert, In no apparent distress, Oriented x3 HEENT: EOMI, Sclerae nonicteric Respiratory: Clear to auscultation bilaterally, Normal air movement Cardiovascular: No edema, Regular rate/rhythm Gastrointestinal: Soft and benign, Non-distended, No tenderness Musculoskeletal: No erythema, No tenderness Integumentary: No rashes, No significant lesion Laboratory Data at Discharge: WBC 9.50 K/uL (4.3-10.9) D 01/29/22 05:41 Hgb 12.8 g/dL (12.0-15.0) 01/29/22 05:41 Hct 37.5 % (36.0-45.0) 01/29/22 05:41 Plt Count 305 K/uL (152-406) 01/29/22 05:41 Sodium 141 mmol/L (136-145) 01/29/22 05:41 Potassium 3.0 mmol/L (3.5-5.1) L 01/29/22 05:41 BUN 7 mg/dL (7-18) 01/29/22 05:41 Creatinine 0.78 mg/dL (0.55-1.3) 01/29/22 05:41 Glucose 93 mg/dL (74-106) 01/29/22 05:41 Total Bilirubin 0.5 mg/dL (0.2-1.0) 01/29/22 05:41 AST 24 U/L (15-37) 01/29/22 05:41 ALT 57 U/L (12-78) 01/29/22 05:41 Alkaline Phosphatase 78 U/L (45-117) 01/29/22 05:41 Home Medications: Codeine/APAP [Tylenol #3*] 1 tab PO Q4HR 01/27/22 Tamsulosin HCl 1 tab PO DAILY 01/27/22 Cefdinir [Omnicef] 300 mg PO BID 7 Days #14 capsule 01/29/22 New Medications: Cefdinir [Omnicef] 300 mg PO BID 7 Days #14 capsule Diet: Regular Activity: Ad teresa Followup: David Ferguson [ACTIVE - CAN ADMIT] - Time spent managing pt's care (in minutes): 45
--- NOTE | 2022-01-31 12:52 | EKG ---
Test Date: 2022-01-27 Test Time: 16:06:48 Machine Operator Farmworker: ZELDAR MEASUREMENT RESULTS: Intervals: Rate: 99 NV: 132 QRSD: 88 QT: 338 QTc: 433 [place]: P: 29 NV: 132 QRS: -3 T: 20 INTERPRETIVE STATEMENTS: Normal sinus rhythm Cannot rule out Anterior infarct, age undetermined Abnormal ECG No previous ECG available for comparison Electronically Signed On 01-31-22 12:50:01 OPTICAL GLASS INSPECTOR by Dejon Ramos
== END 2022-01-29 13:04 | disposition home or self-care (01) | DRG 854 ==
LOC: OR 13:45 → 2ND 19:01
PROVIDERS: ADMIT Hospitalist; ATTEND Hospitalist
PROC: 0T778DZ Dilation of Left Ureter with Intraluminal Device, Via Natural or Artificial Opening Endoscopic (ICD-10-PCS; 2022-01-27)
PROC: BT1FYZZ Fluoroscopy of Left Kidney, Ureter and Bladder using Other Contrast (ICD-10-PCS; principal; 2022-01-27 17:00)
DX: A41.9 Sepsis, unspecified organism (principal); N20.1 Calculus of ureter; N12 Tubulo-interstitial nephritis, not specified as acute or chronic; Z68.41 Body mass index [BMI] 40.0-44.9, adult; R31.9 Hematuria, unspecified; G43.909 Migraine, unspecified, not intractable, without status migrainosus; E78.00 Pure hypercholesterolemia, unspecified; R63.0 Anorexia; E66.01 Morbid (severe) obesity due to excess calories; Z87.891 Personal history of nicotine dependence; Z87.442 Personal history of urinary calculi; Z90.49 Acquired absence of other specified parts of digestive tract; Z20.822 Contact with and (suspected) exposure to COVID-19
CPT/HCPCS: 36415; 51610; 74450; 80053; 85025; 87086; 87088; 93005; J1200; J2250; J2405; J2550; J2704; J2765; J3010; J7030; J7120; U0003

== ENCOUNTER 2022-03-14 06:30 | Day surgery (SDC) | payer BC ==
[2022-03-10 10:07] LABS: Protime INR 0.99
[2022-03-14] MEDS ORDERED: Ringers Lactate 1,000 ML IV ONE (06:52)
[2022-03-14 06:58] LABS: Specific Gravity 1.015 (1.005-1.030)
[2022-03-14] MEDS ORDERED: AMPICILLIN SODIUM 2 GM in NA CHLORIDE 0.9% 100 ML IVPB SCH (07:00)
[2022-03-14] MEDS ORDERED: Gentamicin Inj 200 MG in NA CHLORIDE 0.9% 100 ML IV SCH (07:00)
[2022-03-14] MEDS ORDERED: propofoL 200 MG/20 ML VIAL IV ONE ×2 (07:19→07:55)
[2022-03-14] MEDS ORDERED: LIDOCAINE 1% MPF 5 ML VIAL ONE (07:19)
[2022-03-14] MEDS ORDERED: MIDAZOLAM HCL 2 MG/2 ML INJ ONE (07:19)
[2022-03-14] MEDS ORDERED: FENTANYL CITR 100 MCG/2 ML ONE (07:19)
[2022-03-14] MEDS ORDERED: KETOROLAC 30 MG/ML INJ ONE (07:51)
[2022-03-14] MEDS ORDERED: dexAMETHasone 10 MG/ML VIAL ONE (07:51)
[2022-03-14] MEDS ORDERED: ONDANSETRON 4 MG/2 ML VIAL ONE (07:54)
[2022-03-14] MEDS ORDERED: Phenylephrine HCl 10 MG/ML 1 ML VIAL ONE (08:14)
[2022-03-14] MEDS ORDERED: PHENAZOPYRIDINE 100MG TAB PO ONE (08:49)
[2022-03-14] MEDS ORDERED: HYDROCODONE/APAP 5/325 MG TAB PO PRN (08:49)
[2022-03-14] MEDS ORDERED: PROMETHAZINE INJ 25 MG/ML AMP ONE (08:54)
--- NOTE | 2022-03-14 08:56 | RAD REPORT ---
EXAM DESCRIPTION: RAD - Urethrocystogrphy Retrograde - 03/14/2022 8:36 am CLINICAL HISTORY: LT STENT COMPARISON: Urethrocystogrphy Retrograde dated 01/27/2022 FINDINGS: Total fluoro time: 0.1 minutes
[2022-03-14 09:04] VITALS: TEMP 97.5
[2022-03-14 09:26] VITALS: BP 125/71; O2SAT 100
--- NOTE | 2022-03-15 09:41 | OP ---
Surgeon: KLAUDIA OCAMPO Preoperative Diagnoses: 1.Left obstructive ureterolithiasis, 12 mm. 2.Left nephrolithiasis, 6 mm and 4 mm. Postoperative Diagnoses: 1.Left obstructive ureterolithiasis, 12 mm. 2.Left nephrolithiasis, 6 mm and 4 mm. Principal Procedure: Cystoscopy with left ureteroscopy, laser lithotripsy, pyeloscopy with laser lit hotripsy and left ureteral stent exchange. Indications For Procedure: Ms. Hernandez Singh presented to the Urology Clinic with an obstructing sto ne and underwent initial stent placement due to severe SIRS and impending sepsis. The stone was sign ificantly obstructing in the mid ureter and a stent was placed successfully. She presents today for definitive management of her stones. Procedure In Detail: The patient was consented in the preoperative holding area before being transfe rred to the operative suite where general anesthesia using an LMA was induced. She was given ampicil aurelio 2 g and gentamicin 200 mg IV antimicrobial prophylaxis and Pneumoboots were provided for DVT prop hylaxis. She was placed in the lithotomy position, padded and secured to the table appropriately. H er genitalia were prepped using Hibiclens and draped in standard fashion. The case was begun using a 22-[place] rigid cystoscope to traverse the urethra and into the bladder with ease. The bladder was decompressed of fluid and urine, and the left ureteral stent was emanating from the left ureteral charan fice. I grabbed the coil using an alligator grasper and delivered it to the meatus. I passed a Sens or wire via the stent and coiled it in the putative collecting system. Over the Sensor wire, I passe d a dual-lumen catheter into the mid distal ureter where the stone was visible fluoroscopically at th e pelvic inlet. I then removed the dual-lumen catheter and utilized a semi-rigid ureteroscope and pr essurized normal saline to traverse under direct vision, the urethra into the bladder and into the mi d distal ureter where the stone was encountered. Then utilizing a 265 nanometer laser fiber, with ca utery settings of 0.8 joules and 8 hertz, I was able to quickly fragment that stone to dust less than 1 mm in diameter. I then removed the semi-rigid ureteroscope and again utilized a dual-lumen cathet er to pass a [place] guidewire into the collecting system. It coiled along the indwelling safety wir e, and so I removed the dual-lumen catheter. I then passed over the Bentson guidewire a flexible ure teroscope all the way into the putative upper pole of the kidney. I then surveyed each of the calyce s of the kidney and only identified 1 stone that was approximately 3-4 mm in diameter. I fragmented this stone to dust smaller than 1 mm or around the size of the 265 nanometer laser fiber. Once this was done, I again surveyed each of the calyces of the kidney and only identified a few Devonte's plaq ues, which were also fragmented from their mucosal partially embedded location. Once this was comple meghana, I then surveyed the renal pelvis down through the proximal into the mid and distal ureter and ou t, no additional significantly sized stone fragments were encountered. I then back loaded the cystos cope over the indwelling safety wire and passed a 6-[place] x 24 cm double-J ureteral stent with a coi l observed fluoroscopically in the renal pelvis and one cystoscopically formed in the bladder. The b ladder was then decompressed of fluid and urine and stone fragments, which were collected and sent fo chemical analysis. The patient was taken out of the lithotomy position, awakened from general anes thesia, transferred to a stretcher, and then transferred to the recovery room in good condition. Complications: None. Discharge Disposition: She should follow up in the Urology Clinic in the next 2-4 weeks for cystosco py and left ureteral stent extraction. RESHMA/MODL Voice ID: [id number] Report ID: [id number]
== END 2022-03-14 09:55 | disposition home or self-care (01) ==
LOC: OR 06:30
PROVIDERS: ATTEND Urology
PROC: 0TF78ZZ Fragmentation in Left Ureter, Via Natural or Artificial Opening Endoscopic (ICD-10-PCS; 2022-03-14)
PROC: 0T778DZ Dilation of Left Ureter with Intraluminal Device, Via Natural or Artificial Opening Endoscopic (ICD-10-PCS; 2022-03-14)
PROC: 0TF48ZZ Fragmentation in Left Kidney Pelvis, Via Natural or Artificial Opening Endoscopic (ICD-10-PCS; principal; 2022-03-14 07:30)
DX: N20.2 Calculus of kidney with calculus of ureter (principal); R39.9 Unspecified symptoms and signs involving the genitourinary system; Z20.822 Contact with and (suspected) exposure to COVID-19; E78.00 Pure hypercholesterolemia, unspecified
CPT/HCPCS: 87088; 87086; 36415; 81025; 85610; 88300; 87077; 87186; 82360; 74450; 51610; 52356; U0003; J2704 ×2; J2550; J2370; J1580; J2250; J3010; J1100; J7120; J2405; J0290